=== PATIENT | female | born 1985 | race Caucasian/White ===

== ENCOUNTER 2023-09-07 05:46 | Observation (INO) ==
--- NOTE | 2023-08-24 15:42 | Anesthesiology Consultation ---
Date of Service August 24, 2023 Assessment & Plan (1) Encounter for pre-operative examination: Plan - check urine test STAT am DOS. - Per palliative care physician on 08/24/23: No known infectious disease contacts, current infectious disease symptoms in past 10 days or COVID positive test result in the past 30 days. Chart Review Chart Review: Acceptable Risk for Surgery and Patient NOT seen in Pre Admission Testing History Surgery Operation Date: 09/07/23 07:30 Proposed Procedures p [id number] Panniculectomy - Qing Olson MD Height/Weight Height: 5 ft 9.5 in Weight: 58.967 kg Allergies Allergy/AdvReac Type Severity Reaction Status Date / Time sumatriptan [From Imitrex] Allergy Intermediate Tachycardia Verified 08/24/23 15:22 nickel Allergy Mild SKIN Verified 08/24/23 15:22 IRRITATION strawberry AdvReac Mild Diarrhea Verified 08/24/23 15:22 NSAIDS (Non-Steroidal AdvReac Unknown TOLD NOT Verified 08/24/23 15:22 Anti-Inflamma TO TAKE D/T GASTRIC STEROID AdvReac Mild gan Uncoded 08/24/23 15:22 Medications Home Medications Medication Instructions Recorded Confirmed Last Taken albuterol sulfate 2.5 mg/3 mL 2.5 mg (3 mL) inhalation Q4H PRN 05/21/21 08/24/23 Unknown (0.083 %) solution for nebulization shortness of breath or wheezing #90 mL biotin 1,000 mcg chewable tablet 1,000 mcg PO DAILY 06/17/21 08/24/23 05/11/23 17:00 apixaban 2.5 mg tablet (Eliquis) 2.5 mg PO BID 03/04/23 08/24/23 05/10/23 18:00 cholecalciferol (vitamin D3) 25 25 mcg PO DAILY 05/05/23 08/24/23 Unknown mcg (1,000 unit) chewable tablet (Vitamin D3) potassium chloride 10 mEq 10 meq PO QPM 05/05/23 08/24/23 05/11/23 05:00 capsule,extended release vitamins-iron fumarate 65 1 tab PO DAILY #30 tabs 05/11/23 08/24/23 05/11/23 18:00 mg iron-folic acid 1 mg tablet loratadine 10 mg tablet (Claritin) 10 mg PO QAM #90 tabs 06/07/23 08/24/23 Unk nown ondansetron 4 mg disintegrating 4 mg PO Q8H PRN Nausea #20 tabs 08/04/23 08/24/23 Unknown tablet tramadol 50 mg tablet 50 mg PO BID PRN pain #30 tabs 08/08/23 08/24/23 Unknown medical marijuana 08/15/23 08/24/23 Unknown tizanidine 4 mg tablet 4 mg PO HS PRN Spasms #30 tabs 08/15/23 08/24/23 Unknown albuterol sulfate 90 mcg/actuation 2 puff inhalation Q6H PRN 08/16/23 08/24/23 Unknown aerosol inhaler shortness of breath or wheezing #18 grams Medical Marijuana Card 1 dose UD PRN anxiety/pain 08/18/23 08/24/23 Unknown atomoxetine 40 mg capsule 40 mg PO QAM 08/18/23 08/24/23 Unknown cyanocobalamin (vitamin B-12) 1,000 mcg IM UD 08/18/23 08/24/23 Unknown 1,000 mcg/mL injection solution diclofenac sodium 1 % topical gel 2 g topical UD PRN Pain 08/18/23 08/24/23 Unknown (Voltaren Arthritis Pain) hydroxyzine HCl 10 mg tablet 10 mg PO UD PRN itching 08/18/23 08/24/23 Unknown onabotulinumtoxinA 200 unit 200 unit IM UD 08/18/23 08/24/23 Unknown solution for injection (Botox) pantoprazole 40 mg tablet,delayed 40 mg PO QPM 08/18/23 08/24/23 Unknown release ubrogepant 100 mg tablet (Ubrelvy) 100 mg PO UD PRN migraine 08/18/23 08/24/23 Unknown oxycodone-acetaminophen 5 mg-325 1 tab PO Q4H PRN pain #18 tabs 08/22/23 08/24/23 Unknown mg tablet (Endocet) Past Medical History Medical History Abdominal pannus Anticoagulant long-term use eliquis bid Anxiety and depression Asthma rare use inhaler, last use 1 yr ago Attention deficit disorder (ADD) History of anesthesia reaction gets severe migraines after anesthesia History of COVID-19 05/20/21 History of DVT (deep vein thrombosis) 2019 History of high blood pressure History of high cholesterol History of IBS History of kidney stones Hx gestational diabetes Jaw clicking has not locked for several yrs > not severe per pt Migraines Nerve damage right leg Osteoarthritis Pernicious anemia Pulmonary embolism BILAT. PE DX 2019 (? CAUSE/FOLLOWS WITH HEMATOLOGY ANNUAL) LEG INJURY/DECREASE MOVEMENT>REASON FOR ELIQUIS Rheumatoid arthritis not active...no current tx for. Seasonal allergies Stroke hx of > MRI/MRA within past few months showed hx of old strokes, pt unaware of when the events would have happened Past Family History Family History Father Family history of diabetes mellitus Sister Family history of diabetes mellitus Other No family history of adverse response to anesthesia No pertinent family history Past Surgical History Surgical History H/O knee surgery RT X 3 History of bunionectomy LEFT History of section X 2 History of colonoscopy History of endometrial ablation History of esophagogastroduodenoscopy (EGD) History of sleeve gastrectomy 03/04/2021 History of tooth extraction Nausea and vomiting after administration of anesthetic agent Status post cystoscopy with ureteral stent placement 05/2023 @ [facility] Social History Smoking Status: Former smoker tobacco type: cigarettes Do You Dip or Chew Tobacco: No Smoking End Date: quit 2013 Hx Alcohol Use: No Alcohol type: wine Hx Substance Use: Yes (uses medical marijuana daily (advised on policy)) substance use type: marijuana Substance Use Type Other:: medical marijuana card. Last Used Substance: Days (ago) Last Used Substance Other:: ONLY MEDICAL MARIJUANA Lab Results Anesthesia Preop Results Results Anesthesia Widget: WBC 6.59 K/ul (4.8-10.8) 08/22/23 Hgb 14.2 g/dl (12.0-16.0) 08/22/23 Hct 40.9 % (37.0-47.0) 08/22/23 Plt 215 K/uL (130-400) 08/22/23 Na 135 mmol/L (136-145) L 08/22/23 K 3.6 mmol/L (3.5-5.1) 08/22/23 Cl 100 mmol/L (98-107) 08/22/23 CO2 31 mmol/L (21-32) 08/22/23 BUN 17 mg/dl (6-23) 08/22/23 Creat 0.53 mg/dl (0.6-1.2) L 08/22/23 Glucose Level 85 mg/dl (70-99(Fasting)) 08/22/23 PT 11.2 Seconds (9.0-12.0) 08/22/23 INR 1.0 (0.9-1.1) 08/22/23 Urine Color Dark Yellow 08/04/23 Urine Appearance Cloudy (Clear) A 08/04/23 Urine pH 5.5 (4.5-7.5) 08/04/23 Urine Specific [place] 1.029 (1.000-1.030) 08/04/23 Urine Protein Negative (Negative) 08/04/23 Urine Glucose (UA) Negative (Negative) 08/04/23 Urine Ketones Trace (Negative) H 08/04/23 Urine Blood Negative (Negative) 08/04/23 Urine Nitrite Negative (Negative) 08/04/23 Urine Bilirubin Negative (Negative) 08/04/23 Urine Urobilinogen Negative (Negative) 08/04/23 Urine Leukocyte Esterase 1+ (Negative) H 08/04/23 Urine WBC (Auto) 5-10 /hpf (0-5) H 08/04/23 Urine RBC (Auto) 0-4 /hpf (0-4) 08/04/23 Urine Hyaline Casts (Auto) 1-5 /lpf (0-5) 08/04/23 Urine Epithelial Cells (Auto) >30 /lpf (0-5) H 08/04/23 Urine Bacteria (Auto) 1+ (Negative) H 08/04/23 SARS-CoV-2, RNA, NAAT Negative 08/04/23 Testing Electrocardiogram Date: 04/27/23 NSR, rate 91 bpm Possible LA enlargement Low voltage QRS, consider pulmonary disease, pericardial effusion or normal variant Septal infarct cited on or before 08/08/20 Chest X-Ray Date: 04/27/23 *1view* Right lower lobe parenchymal opacity may represent aspiration or pneumonia Echocardiogram Date: 01/21/20 EF 70% Borderline concentric LVH Non-dilated cardiac chambers No significant valvular pathology Stress Test Date: 10/10/20 Dobutamine MPHR 85% Normal without resting LV wall motion abnormalities or inducible ischemia EF 60% No significant valvular disease Cervical Spine Date: 02/19/23 CT No acute cervical spinal injury demonstrated Other Testing Abdomen pelvis CT 05/14/23 Left nephroureteral stent in satisfactory position with mild hydronephrosis. Otherwise unremarkable study. Head MRA 04/26/23 Normal MRA of the head Brain MRI 04/05/23 No acute intracranial abnormality Small focal area of T2 hyperintensity seen within the posterior right cerebellum that appears increased compared with the axial T2 weighted images from the prior MRI dated 09/19/17, which may represent a chronic lacunar infarction. Small focus of susceptibility artifact seen within the posteromedial left cerebellum, which may represent a tiny cavernous malformation or chronic micro hemorrhage.
[2023-09-07] MEDS: LR 15ML/HR IV SCH (06:32)
[2023-09-07] MEDS ORDERED: ONDANSETRON INJ 2 MG/ML 2 ML VIAL ONE (06:49)
[2023-09-07] MEDS ORDERED: LIDOCAINE 2% 2 ML VIAL/AMP(20MG/ML) INFIL ONE ×3 (06:49→09:43)
[2023-09-07] MEDS ORDERED: PROPOFOL IV EMULSION 10 MG/ML 20 ML VIAL IV ONE ×5 (06:49→07:28)
[2023-09-07] MEDS ORDERED: fentaNYL citrate PF 100 MCG/2 ML VIAL ONE ×2 (06:49→08:25)
[2023-09-07] MEDS ORDERED: MIDAZOLAM HCL 1 MG/ML 2ML VIAL ONE (06:49)
[2023-09-07] MEDS ORDERED: DEXAMETHASONE SOD INJ 4 MG/ML VIAL ONE (06:49)
[2023-09-07] MEDS: SCOPOLAMINE 1 MG/72 HR TDSY PATCH TD ONE (06:51)
[2023-09-07] MEDS ORDERED: ROCURONIUM BROMIDE 10 MG/ML 5 ML VIAL IV ONE ×15 (06:53→10:04)
--- NOTE | 2023-09-07 06:53 | History & Physical Bridge Note ---
Date of Service September 07, 2023 History & Physical Bridge Note I have examined the patient, reviewed the History & Physical and in the interval since the performance of the History & Physical I have noted the following changes of clinical significance: no changes noted
[2023-09-07] MEDS ORDERED: ePHEDrine sulfate 50 MG/ML AMP IV PRN (06:55)
[2023-09-07] MEDS ORDERED: ATROPINE SULFATE 0.1 MG/ML 10ML SYR IV PRN (06:55)
[2023-09-07] MEDS ORDERED: KETAMINE HCL INJ 50 MG/ML 10 ML VIAL ONE (07:14)
[2023-09-07] MEDS ORDERED: GLYCOPYRROLATE 0.2 MG/ML VIAL ONE (07:15)
[2023-09-07] MEDS: HEPARIN SOD 5,000 UNIT/0.5 ML VIAL SQ STA (07:21)
[2023-09-07] MEDS ORDERED: DexMEDEtomidine HCL IV 100 MCG/ML VIAL IV ONE (07:23)
[2023-09-07] MEDS: ceFAZolin 2000MG 2,000 MG/15 ML SYR IV SCH ×2 (07:28→16:33)
[2023-09-07] MEDS: EpINEphrine HCL INJ 1 MG/ML 1ML SYRINGE IR ONE (08:42)
[2023-09-07] MEDS: LIDOCAINE 1% LOCAL 20 ML VIAL ONE (08:44)
[2023-09-07] MEDS ORDERED: SUGAMMADEX SODIUM 200 MG/2 ML VIAL IV ONE (09:46)
[2023-09-07] MEDS ORDERED: ePHEDrine sulfate 50 MG/5 ML SYR ONE (10:30)
[2023-09-07] MEDS: LIDOCAINE 1%/EPINEPHRINE 1:100,000 20 ML VIAL ONE (10:49)
[2023-09-07] MEDS: BUPIVACAINE 0.25% PF 30 ML VIAL ONE (10:49)
[2023-09-07] MEDS: TISSEEL FIBRIN SEALANT 10ML TOP ONE (11:10)
[2023-09-07] MEDS ORDERED: MoRPHine SULFATE 2 MG/ML CARP ONE (11:32)
--- NOTE | 2023-09-07 11:43 | Post Operative Brief Note ---
PG Immediate Post Op with CF Date of Surgery September 07, 2023 Pre & Post Diagnosis Operation Date: 09/07/23 07:30 Pre-Op Diagnosis: Abdominal Pannus Post-Op Diagnosis: Abdominal Pannus I identified the patient and participated in the time-out.: Yes Procedure Operation Date: 09/07/23 07:30 Actual Procedures p [id number] Panniculectomy(Bilateral) - Qing Olson MD Surgeon Qing Olson MD Lacquerer Brenda Duron PA-C Estimated Blood Loss 50 Findings Consistent with Post-Op Diagnosis Specimens Specimen Description: A. Abdominal Tissue Drains Valdez Catheter and Cedrick-S[place]ie[place] Drain (x3 ) Anesthesia Type General Complications none
[2023-09-07] MEDS: fentaNYL citrate PF 100 MCG/2 ML VIAL IV PRN (12:36)
--- NOTE | 2023-09-07 13:00 | Operative Report ---
PG Post Operative Report Pre & Post Diagnosis Operation Date: 09/07/23 07:30 Pre-Op Diagnosis: Abdominal Pannus Post-Op Diagnosis: Abdominal Pannus I identified the patient and participated in the time-out.: Yes Procedure Operation Date: 09/07/23 07:30 Actual Procedures p Thierry Panniculectomy(Bilateral) - Qing Olson MD Surgeon Qing Olson MD Patient Ombudsperson Brenda Duron PA-C Estimated Blood Loss 50 Findings Consistent with Post-Op Diagnosis Specimens Abdominal skin to pathology Drains DUONG x 3 Anesthesia Type General Complications none Indications 37-year-old female, status post 220 pound weight loss with excess and intertrigo Description of Procedure The risk, benefits, alternatives of procedure explained the patient agreed and signed consent. She was notified marked in the preoperative holding area. Upper abdominal skin resection as well as the infraumbilical planned resection in a judaism shaped pattern. Patient was brought to the operating room, placed under general anesthesia without incident. Valdez catheter was placed. Surgical site was prepped and draped sterilely. Timeout procedure was performed. I reassessed my markings which included a lower horizontal abdominal incision with the midportion 8 cm above the vulvar commissure. Incision was marked bilaterally to the ASIS. I began by injecting 1% lidocaine with epinephrine along the planned incision. The lower abdominal incision was made using a 15- blade scalpel to incise epidermis and superficial dermis followed by electrocautery to incise deep dermis, subcutaneous fat, Javier's fascia down to the abdominal wall. Care was taken to bevel superiorly in order to avoid encountering the inguinal region. Electrocautery was used to elevate the anterior abdominal skin flap ligating the perforating vessels with 3-0 Vicryl ties and electrocautery. Dissection was carried up to the level of the umbilicus in the midline. At this point, a 15-blade scalpel was used to circumscribe the umbilicus. A vertical midline incision was then made from the incision to the umbilicus and divided in the midline using electrocautery. The umbilicus was then dissected out using electrocautery down to abdominal wall. The umbilical stalk appeared viable throughout the procedure. Skin flaps were marked for excision. A 15-blade scalpel was used to make these incisions and the incision was deepened through dermis, subcutaneous fat, Javier's fat using electrocautery. Subscarpal fat was resected directly. Prior reed were confirmed using tailor tacking and the inverted V incision was made using a 15 blade scalpel and deepened through the dermis and subcutaneous tissue using electrocautery. Dissection of the skin and underlying subcutaneous tissue was undertaken at the level of the rectus fascia to the xiphoid process. Hemostasis was achieved using electrocautery. 2-0 Vicryl suture was used to reapproximate Javier's fascia and deep dermis. At this point, the bed was flexed and the flaps were advanced and tacked to the incision above the mons pubis using 2-0 Vicryl suture. Nursing staff was again notified cosmetic portion was ending.After achieving hemostasis with electrocautery. 10 cc of Tisseel was sprayed into the upper abdominal wound due to patient being treated preoperatively with heparin and need for postoperative Eliquis use, prevent hematoma or seroma and facilitate flap adherence. All skin edges did appear to be viable following this portion of the procedure. A total of 3 15 [place] drains were placed in the wound bed and brought out through a separate stab incision in the mons pubis. The drains were sutured into place using 3-0 nylon. The umbilicus was brought out through an inverted triangular incision in the abdominal wall. Wound closure was then begun lateral to medial using 2-0 Vicryl Javier's fascia sutures, 2-0 Vicryl deep dermal sutures, 2-0 PDO running superficial Quill suture, 3-0 Monocryl running subcuticular suture. Umbilicus w as brought out through the inverted triangle incision and was sutured into place using 4-0 chromic half buried horizontal mattress sutures. The remainder of the upper abdominal incision was closed using 2-0 PDO running superficial Quill suture and 3-0 Monocryl running subcuticular suture superior to the umbilicus, 3-0 PDS interrupted superficial dermal sutures inferior to the umbilicus followed by running subcuticular Monocryl. The umbilicus was dressed using Xeroform and the incision was dressed using Dermabond Prineo followed by dry dressings and an abdominal binder. The procedure was tolerated well. The patient was awakened and transferred to recovery in satisfactory condition. Brenda Duron PA-C were present and scrubbed throughout the entire procedure, assisting in flap elevation, retracting, achieving hemostasis, flap resection, and simultaneous wound closure. I attest to the content of the Intraoperative Record and any orders documented therein. Any exceptions are noted below.
[2023-09-07] MEDS ORDERED: HYDROmorphone INJ 1 MG/ML SYRINGE IV PRN (13:05)
[2023-09-07] MEDS: HYDROmorphone INJ 0.5 MG/0.5 ML SYR ONE (13:10)
[2023-09-07] MEDS: HYDROmorphone INJ 0.5 MG/0.5 ML SYR IV STA (13:10)
[2023-09-07] MEDS: DROPERIDOL 5 MG/2 ML VIAL IV PRN (13:12)
[2023-09-07] MEDS ORDERED: diphenhydrAMINE Capsule 25 MG CAP PO PRN (14:24)
[2023-09-07] MEDS ORDERED: ONDANSETRON INJ 2 MG/ML 2 ML VIAL IV PRN (14:24)
[2023-09-07] MEDS ORDERED: ACETAMINOPHEN 325 MG TAB PO PRN (14:24)
[2023-09-07] MEDS ORDERED: diphenhydrAMINE 50 MG/ML VIAL IV PRN (14:24)
[2023-09-07] MEDS ORDERED: LORazepam 0.5 MG TAB PO PRN (14:24)
[2023-09-07] MEDS ORDERED: PROMETHAZINE HCL 12.5 MG in SODIUM CHLORIDE 0.9% 50 ML IV PRN (14:24)
[2023-09-07] MEDS: D5W AND 1/2NSS 1,000 ML IV SCH (15:04)
[2023-09-07] MEDS: CHECK SCOPOLAMINE PATCH PLACEMENT SCH (15:08)
[2023-09-07] MEDS: HEPARIN SOD 5,000 UNIT/0.5 ML VIAL ONE (15:09)
--- NOTE | 2023-09-07 15:18 | Anesthesiology Progress Note ---
Date of Service September 07, 2023 Anesthesia Post Procedure Vital Signs Vital Signs: Temp Pulse Pulse Resp BP Pulse Ox O2 Del Method 09/07/23 15:00 36.6 C 71 14 127/84 100 Room Air 09/07/23 14:30 36.4 C L 62 16 127/82 99 Room Air 09/07/23 13:50 55 L 12 124/84 100 Room Air 09/07/23 13:40 36.3 C L 62 14 129/91 99 Room Air 09/07/23 13:30 68 13 148/93 H 99 Room Air 09/07/23 13:20 68 13 150/96 H 100 Room Air 09/07/23 13:10 65 13 156/89 H 100 Room Air 09/07/23 13:00 77 14 149/93 H 100 Room Air 09/07/23 12:50 56 L 12 138/87 100 Room Air 09/07/23 12:40 54 L 13 142/94 H 99 Room Air 09/07/23 12:30 73 14 136/95 100 Room Air 09/07/23 12:20 67 14 121/85 100 Oxymask 09/07/23 12:10 67 12 125/85 100 Oxymask 09/07/23 12:08 36.0 C L 67 12 111/80 100 Oxymask 09/07/23 06:10 36.8 C 71 18 136/75 100 Room Air O2 Flow Rate 09/07/23 15:00 09/07/23 14:30 09/07/23 13:50 0 09/07/23 13:40 0 09/07/23 13:30 0 09/07/23 13:20 0 09/07/23 13:10 0 09/07/23 13:00 0 09/07/23 12:50 0 09/07/23 12:40 0 09/07/23 12:30 0 09/07/23 12:20 8 09/07/23 12:10 8 09/07/23 12:08 8 09/07/23 06:10 Pain Intensity Abdomen: Pain Intensity: 7 Transfer of Care Handoff Completed per policy Notes Mental Status: alert / awake / arousable Patient Amnestic to Procedure: Yes Nausea / Vomiting: adequately controlled Pain: adequately controlled Airway Patency, RR, SpO2: stable & adequate BP & HR: stable & adequate Hydration State: stable & adequate Anesthetic Complications: no major complications apparent
[2023-09-07] MEDS: MoRPHine SULFATE 4 MG/ML 1 ML CARP\\VIAL IV PRN (18:05)
--- OUTSIDE RECORDS SUMMARY | 2023-09-07 19:27 | External Medical Summary | Summary of Care ---
Author Name Unknown Organization [facility] Address [address] [place] [address] Phone [phone] Care Team Providers Care Hand Shoes Sewer Name Role Phone Alan Bryant DO Primary Care Provider [phone] Reason for Visit * Reason Comments Follow Up Patient is present t imelda for L greater toe ingrown. Also having issues with pinky toe on L foot as well Encounter Details Date Type Department Care Team (Late st Contact Info) Description 08/29/2023 1:20 PM EDT Office Visit Podiatry, [facility] [address] [place] [address] Freya Blanton, FERMÍN [address] [place], [place] [id number] Corns and callosities*; Ingrown left big toenail Allergies Active Allergy Reactions Criticality Noted Date Comments Sumatriptan Anaphylaxis High 05/08/2014 Nickel Rash Low 01/05/2022 Nsaids Other (Please comment) 01/05/2022 History of sleeve gastrectomy and was advised not to take NSAIDs Corticosteroids Other (Please comment) 01/06/20 History of sleeve gastrectomy and was advised not to take oral steroids [place] Extract High 05/05/2023 Other Reaction(s): Diarrhea documented as of this encounter (statuses as of 08/30/2023) Medications Medication Sig Dispensed Refills Start Date End Date Status albuterol (PROAIR HFA) 108 (90 BASE) MCG/ACT inhalerIndications:In fluenza A Inhale 2 Puffs by mouth every 4 hours as needed for Wheezing. 1 Inhaler 11 05/23/2017 Active vitamin b-12 (CYANOCOBALAMIN) 1000 MCG/ML injection Inject 1,000 mcg as directed every 30 days. 1 mL 11 11/23/2017 Active albuterol sulfate (PROVENTIL) (2.5 MG/3ML) 0.083% nebulizer solutionIndications:C ough Inhale 1 Vial via nebulizer every 4 hours as needed for Wheezing. 120 Vial 11 02/09/2018 Active Nebulizer MISCIndications:Cough Nebulizer mask and tubing 1 Each 0 02/09/2018 Active clonazePAM (KLONOPIN) 0.5 MG Tablet 1 09/29/2018 Active Myawdhffzc-XBVA-Dhmlb ine (FIORICET) 50-300-40 MG per capsule Take 1 Capsule by mouth every 6 hours as needed (migraine). 0 Active traMADol (ULTRAM) 50 MG Tablet Take 1 Tablet by mouth every 6 hours as needed for Pain. 0 Active tiZANidine (ZANAFLEX) 4 MG Tablet Take 1 Tablet by mouth 3 times a day as needed. 0 03/14/2019 Active Biotin 5 MG TBDP Take 1 Tab by mouth daily. 0 03/14/2019 Active Krill Oil (OMEGA-3) 500 MG CAPS Take 1 Cap by mouth daily. 0 03/14/2019 Active Loratadine 10 MG Oral Tablet (CLARITIN) TAKE 1 TABLET BY MOUTH EVERY DAY 30 Tab 5 02/08/2020 Active busPIRone HCl 10 MG Oral Tablet (Buspar) Take 2 Tablets by mouth in the morning and 2 Tablets before bedtime. 0 05/28/2020 Active DULoxetine HCl 20 MG Oral Capsule Delayed Release Particles (Cymbalta) Take 1 Capsule by mouth in the morning and 1 Capsule before bedtime. 0 03/17/2020 Active Folic Acid 1 MG Oral Tablet See Instructions, Disp# 30 tab, Refills: 3, TAKE 1 TABLET BY MOUTH EVERY DAY, Pharmacy: [id number] 05/13/2020 Active Methotrexate 2.5 MG Oral Tablet See Instructions, Disp# 35 tab, Refills: 1, TAKE 7 TABLETS EVERY 7 DAYS FOR 30 DAYS, Pharmacy: [facility] [id number] 07/21/2020 Active Botox 100 UNIT Injection Solution Reconstituted (botulinum toxin type a) Start: 08/04/20 9:20:00 EDT, See Instructions, q three months 0 08/04/2020 Active Vitamin D (Cholecalciferol) 50 MCG (1999 UT) Oral Capsule Take 1 Cap by mouth daily. 0 09/05/2020 Active Vitamin C 500 MG Oral Capsule Take 1 Cap by mouth daily. 0 09/05/2020 Active Apixaban 5 MG Oral Tablet (Eliquis) Take 1 Tablet by mouth in the morning and 1 Tablet before bedtime. 0 Active Lisinopril 10 MG Oral Tablet (Prinivil) Take 1 Tablet by mouth in the morning. 0 12/13/2020 Active Acetaminophen-Codeine #3 300-30 MG Oral Tablet (Tylenol #3) TAKE 1 TABLET BY MOUTH EVERY 8 HOURS NEEDED FOR PAIN NO DRIVING WHILE ON TYLENOL 3 0 12/16/2020 Active Lidocaine 4 % External Cream APPLY TO BOTH KNEES 3 TIMES A DAY. 30 DAY SUPPLY 0 12/29/2020 Active Continuation of patient use of medical marijuana is approved Start: 01/22/21 8:22:00 EDT 0 01/22/2021 Active Ondansetron HCl 4 MG Oral Tablet (Zofran) TAKE 1 TABLET BY MOUTH EVERY 8 HOURS NEEDED FOR NAUSEA AND VOMITING 0 04/23/2021 Active Continuation of patient use of medical marijuana is approved Start: 01/22/21 8:22:00 EDT 0 01/22/2021 Active Ondansetron HCl 8 MG Oral Tablet (Zofran) Take 1 Tablet by mouth every 8 hours as needed for Nausea or Vomiting. 12 Tablet 0 06/28/2022 Active Promethazine HCl 25 MG Rectal Suppository (Phenergan) Administer 1 Suppository into the rectum every 6 hours as needed for Nausea. 12 Each 0 06/28/2022 Active Ondansetron 4 MG Oral Tablet Disintegrating (Zofran) Place 1 Tablet on tongue every 8 hours as needed for Nausea. dissolve on tongue. 2 Tablet 0 04/28/2023 Active Ondansetron 4 MG Oral Tablet Disintegrating (Zofran) Place 1 Tablet on tongue every 8 hours as needed for Nausea. dissolve on tongue. 15 Tablet 0 04/28/2023 Active documented as of this encounter (statuses as of 08/30/2023) Active Problems Problem Noted Date Diagnosed Date Endometrial polyp 01/14/2021 Menometrorrhagia 12/19/2020 History of IBS 10/07/2020 History of polyarthritis 10/07/2020 Obesity, Class II, BMI 35-39.9, isolated (see ac tual BMI) 10/16/2019 Bilateral pulmonary embolism 10/16/2019 Anxiety 10/16/2019 Depression 10/16/2019 Pulmonary infarction 10/16/2019 Tinnitus of right ear 06/01/2017 Advanced directives, counseling/discussion 04/18 Overview: No, Advance Directive brochure offered, patient declined. Family history of clubfoot 02/21/2017 Family history of congenital heart defect 2014 Family history of defect 12/10/2014 Family history of other condition 10/22/2014 Asthma in remission 05/08/2014 Migraines 05/08/2014 Pernicious anemia 05/08/2014 documented as of this encounter (statuses as of 08/30/2023) Resolved Problems Problem Noted Date Diagnosed Date Resolved Date Body mass index (BMI) of 40. 0 to 44.9 in adult 03/13/2018 05/19/2018 Overview: Per Obesity protocol #1 Morbid obesity, unspecified obesity type 12/28/2017 02/13/2018 BMI 45.0-49.9, adult 12/28/2017 018 Overview: Per Obesity protocol #1 Mild preeclampsia, third trimester 08/04/2017 09/01/2017 Overview: 08/04/2017 = Urine protein creatinine ratio 0.30 08/04/2017 = 24 hr urine pending. Pt to bring sample on Tuesday when she has her rpn Pt dx = chronic hypertension with superimposed PEC Pt should have PEC labs done every week from this point on and pt to call if any symptoms of PEC. To increase dose of labetalol to 200 mg bid. Pt to call and discontinue if BP drops below 120/80 Delivery at 37w0d or no later than 39 wks. Supervision of high-risk pre gnancy, unspecified trimester 04/06/2017 08/04/2017 Insulin-dependent diabetes m chidiitus during , antepartum 04/06/2017 09/01/2017 Overview: Recommend surveillance starting at 32 weeks secondary to CHTN on medications, GDMA2, and class III obesity. Recommend follow up ultrasound with MFM in 4 weeks for growth and completion of anatomy. If the missed anatomy is sufficiently visualized, then follow-up growth scans afterward could be obtained in [place]. Recommend delivery at/after 39w0d and by EDC. Hx of preeclampsia, prior pr egnancy, currently 04/06/2017 08/04/2017 Supervision of other high ri sk pregnancies, first trimester 02/21/2017 04/06/2017 Chronic hypertension in 02/21/2017 09/01/2017 Overview: Labetolol. 08/04/2017 increased dose to 200 mg bid Obesity in , antepartum 02/21/2017 08/04/2017 History of pre-eclampsia in prior , currently in first trimester 02/21/2017 History of section complicating 02/21/2017 09/01/2017 Insulin controlled gestation al diabetes mellitus (GDM) in first trimester 02/21/20172016 Insulin controlled gestation al diabetes mellitus (GDM) during , antepartum 02/02/2017 06/15/2017 Overview: Problem Action Taken Date entered Entered by Date resolved Need for baby supplies Distribute cribs letter Refer to local support centers 02/09/2017 Gertrudis Alejnadra RN 02/09/2017 Problem Action Taken Date entered Entered by Date resolved Need for food assistance referred to [facility] and local food [place] 02/09/2017 Gertrudis Alejandra RN 02/09/2017 Problem Action Taken Date entered Entered by Date resolved Current needs or questions Patient denies having any current needs or questions 03/09/2017 Frances Yadav, CARLITO 03/09/17 Problem Action Taken Date entered Entered by Date resolved Recent spotting Provider seen 03/30/2017 Gertrudis Alejandra RN 03/30/2017 Problem Action Taken Date entered Entered by Date resolved Second trimester education Second trimester education. have you cut down with your smoking. na have you quit . no have you seen a floor clerk. No, had appt she did not show. have you seen a social insurance adviser. no are you receiving counseling. no have you received dental care during your . yes are you enrolled in [facility] . yes do you receive food stamps or [place] assistance. no 04/06/2017 Lexie Curry RN 04/06/2017 Problem Action Taken Date entered Entered by Date resolved Mucus discharge Provider visit. Did not bring list of blood sugars to visit 04/14/2017 Gertrudis Alejandra RN 04/14/2017 Problem Action Taken Date entered Entered by Date resolved Current needs or questions Patient denies having any current needs or questions 05/04/2017 Lexie Curry RN 05/04/2016 Problem Action Taken Date entered Entered by Date resolved Current needs or questions Patient denies having any current needs or questions 06/01/2017 Frances Yadav RN 06/01/17 Problem Action Taken Date entered Entered by Date resolved 3 rd trimester education Third trimester education have you cut down with your smoking. na have you quit . na have you seen a floor clerk. Scheduled but did not see patienat have you seen a social insurance adviser. no are you receiving counseling. no have you received dental care during your . yes are you enrolled in [facility] . yes do you receive food stamps or [place] assistance. no 06/15/2017 Lexie Curry Rn, RN 06/15/2017 Problem Action Taken Date entered Entered by Date resolved Current needs or questions Patient denies having any current needs or questions 06/29/2017 Gertrudis Alejandra RN 06/29/2017 Problem Action Taken Date entered Entered by Date resolved Current needs or questions Patient denies having any current needs or questions 47. Client's Concerns About Delivery or The Process: concerned that she does not know this hospital 48. Problems Feeding Previous Babies: Unsuccessful Breast Feeding 49. Concerns About Feeding This Baby: stress 50. Plans For Baby's Space: share room with parents in [facility] 51. Client's Plans After : Will Stay at Home to Care for Baby Comments (Including Shift Mgr Plans If Returning to Work/School): SUMMARY/INFORMATION 52. Need For Additional Information / Help: Childbirth Education patient went to course 07/08/2017 Gertrudis Alejandra RN 07/08/2017 Problem Action Taken Date entered Entered by Date resolved Current needs or questions Patient denies having any current needs or questions 07/15/2017 Gertrudis Alejandra RN 07/15/2017 Problem Action Taken Date entered Entered by Date resolved Current needs or questions Patient denies having any current needs or questions 07/22/2017 Frances Yadav RN 07/22/17 Problem Action Taken Date entered Entered by Date resolved Current needs or questions Patient denies having any current needs or questions 07/29/2017 Gertrudis Alejandra RN 07/29/2017 Problem Action Taken Date entered Entered by Date resolved Current needs or questions Patient denies having any current needs or questions 08/05/2017 Gertrudis Alejandra RN 08/05/2017 Problem Action Taken Date entered Entered by Date resolved Current needs or questions Patient denies having any current needs or questions 08/09/2017 Gertrudis Alejandra RN 08/09/2017 Problem Action Taken Date entered Entered by Date resolved Patient wanting to discuss early c section Scheduled with Dr. Al 08/15/2017 Gertrudis Alejandra RN 08/15/2017 Problem Action Taken Date entered Entered by Date resolved Current needs or questions Patient denies having any current needs or questions 08/19/2017 Gertrudis Alejandra RN 08/19/2017 Problem Action Taken Date entered Entered by Date resolved Current needs or questions Patient denies having any current needs or questions 08/23/2017 Gertrudis Alejandra RN 08/23/2017 Problem Action Taken Date entered Entered by Date resolved Current needs or questions Patient denies having any current needs or questions 08/26/2017 Gertrudis Alejandra RN 08/26/2017 Problem Action Taken Date entered Entered by Date resolved Education education given 10/14/2017 Jarred Ferrer RN 10/14/17 Gestational proteinuria, antepartum 01/20/2017 09/01/2017 Overview: Pt w/ proteinuria which may predate ; currently 179 mg daily on specimen w/ normal <150 mg daily -recheck spot ratio -monitor spot ratios through and luann after -low threshold to recheck 24 hr urine in 4-6 wks -control BP w/ prg appropriate meds -no indication at this time for serologic work up or renal biopsy but needs to be monitored closely; cannot rule out need in future [employer] Other*[id number] 01/17/2017 06/06/2019 Essential hypertension affecting 01/10/2017 08/04/2017 Previous delivery, antepartum condition or complication 01/10/2017 08/04/2017 Overview: Considering , no tubal Hx of preeclampsia, prior pr egnancy, currently 01/10/2017 09/01/2017 Overview: Taking baby ASA. GDM (gestational diabetes mellitus) 05/28/2015 08/04/2017 Hypertension in , p reeclampsia, delivered 05/28/2015 10/26/2016 GBS (group B streptococcus) infection 04/28/2015 04/28/2015 Overview: RV probe positive for GBS. Will in treat when in labor per protocol. Pre eclampsia Biomarkers Res ear Study*[id number] 04/23/2015 05/05/2015 Overview: The [facility] Preeclampsia Study (IRB#[id number]) is an observational study aimed at collecting blood and urine samples from women to develop a diagnostic test for preeclampsia. Patients enrolled provide samples at time of enrollment and a second set of samples if they develop preeclampsia later in . Study participation ends after the patient's first standard post-delivery visit. PI: Dr. Cory Lopez Study Contacts: Jia Kohli ([id number]) or Isabel Sanchez ([id number]) Glucose intolerance (impaire d glucose tolerance) 01/22/2015 04/20/2017 GDM (gestational diabetes mellitus) 12/19/2014 04/28/2015 Obesity, Class III, BMI 40-4 9.9 (morbid obesity) 12/10/2014 12/28/2017 Overview: Class 3-BMI 40+: Recommend restricting weight gain during to 11-20 pounds. Consider referral for nutrition consult. For patients with Class 3 obesity, recommend baseline pre-eclamptic labs with serum AST/ALT/creatinine and 24 hour urine protein LUDMILA if not already done. Recommend obtaining early Gestational Diabetes Mellitus screen and repeat again at 26-28 weeks if early screen is normal. Recommend Maternal Medicine ultrasound for anatomy screen at 20 weeks and for growth every 4 weeks after 24 weeks. For patients with Class 3 obesity, we recommend surveillance twice weekly to begin at 36 weeks and delivery by EDC. Recommend anesthesia consult during the antepartum period. Obesity in , antepartum 12/10/2014 05/28/2015 First trimester screening 12/10/2014 Headache in 12/10/20142015 Maternal asthma complicating 12/10/2014 05/28/2015 Pap smear for cervical cancer screening 10/31/2014 04/28/2015 Overview: Last pap in [place] 09/12/13 WNL , normal first 10/22/201405/03 Overview: Problem Action Taken Date entered Entered by Date resolved BMI greater than 30 Discuss importance of proper diet Referral to eye dropper assembler Provider referral to Maternal Medicine 10/22/2014 Bernice Fraser RN 10/22/14 Problem Action Taken Date entered Entered by Date resolved Need for baby supplies Distribute cribs letter Refer to local support centers 10/22/2014 Bernice Fraser RN 10/22/14 Problem Action Taken Date entered Entered by Date resolved Lack of knowledge regarding Labor & Delivery Encourage childbirth education classes and Education class schedule given to patient 10/22/2014 Bernice Fraser RN 10/22/14 Problem Action Taken Date entered Entered by Date resolved Current needs or questions Patient denies having any current needs or questions. U/S scheduled today to confirm FHT's 11/19/2014 Lexie Curry RN 11/19/2014 Problem Action Taken Date entered Entered by Date resolved Questions re GDM Answered by Dr. Munoz. Will check blood glucose. All normal. Only fasted 6 hours for 3 hour GTT 12/31/2014 Lexie Curry RN 12/31/2014 Problem Action Taken Date entered Entered by Date resolved N&V Need for baby supplies Discussed comfort measures Referred to [facility] 01/14/2015 Frances Yadav RN 01/14/15 Problem Action Taken Date entered Entered by Date resolved Current needs or questions Patient denies having any current needs or questions 01/28/2015 Bernice Fraser RN 01/28/15 Problem Action Taken Date entered Entered by Date resolved Second trimester ed Pre term labor warnings and instructions, kick count instructions, danger signs given, information brochure on Sudden Sydrome given to patient, as well as infant feeding information, and patient advised to use seat belt. All information given both verbally and in writing. Phone numbers given to reach us both during and after office hours. Aware of numbers to call with any questions and concerns. Discussed need for flu vaccine and Tdap. 02/24/2015 Lexie Curry RN 02/24/2015 Problem Action Taken Date entered Entered by Date resolved GDM Glucose not at goal Starting glyburide 2.5 mg today 03/24/2015 Lexie Curry RN Problem Action Taken Date entered Entered by Date resolved Tdap Vaccine given 04/08/2015 Bernice Fraser RN 04/08/15 Problem Action Taken Date entered Entered by Date resolved Lack of knowledge of childbirth Registered for childbirth classes 04/08/2015 Bernice Fraser RN 04/08/15 Problem Action Taken Date entered Entered by Date resolved 32 week readiness 47. Client's Concerns About Delivery or The Process: denies 48. Problems Feeding Previous Babies: Other planning to breast feed 49. Concerns About Feeding This Baby: no 50. Plans For Baby's Space: will sleep in a crib in moms room initially 51. Client's Plans After : Will Stay at Home to Care for Baby Comments (Including Shift Mgr Plans If Returning to Work/School): SUMMARY/INFORMATION 52. Need For Additional Information / Help: Other no 04/22/2015 Lexie Curry RN 04/22/2015 documented as of this encounter (statuses as of 08/30/2023) Immunizations Name Administration Dates Next Due COVID-19 mRNA, LNP-s, No Pre serve, 2-Dose Series (Airec) 12/19/2020,06/13/2020,05/23/2020 COVID-19, LNP-s, No Preserve , Vladimir-sucrose, Ages 12+ (Pfizer) 12/19/2021,06/12/2021 Seasonal Influenza, PF, 6 M & above, IM , (FluLaval or Fluzone) 01/14/2021 Seasonal Influenza, Quadriva lent, No Preserve, IM 04/15/2015 Seasonal Influenza, Quadriva lent,with Preserve, 3 yr & above, IM 01/15/2020 TDAP (age 10 and older)(Boostrix) 06/29/2017,11/2014 documented as of this encounter Social History Tobacco Use Types Packs/Day Years Used Date Smoking Tobacco: Former Cigarettes Q uit: 03/24/2014 Smokeless Tobacco: Never Comments:Not smoking Alcohol Use Standard Drinks/Week Comments No 0 (1 standard drink = 0.6 oz pur e alcohol) none in over 1 year PHQ-2 Answer Date Recorded PHQ-2 Score 2 03/06/2018 Sex and Gender Information Value Date Recorded Sex Assigned at Not on file Gender Identity Not on file Sexual Orientation Not on file Job Start Date Occupation Industry Not on file Not on file Not on file documented as of this encounter Functional Status Functional Status Response Date of Assess ment Are you deaf or do you have serious difficulty h earing? No 10/16/2019 Are you blind or do you have serious difficulty seeing, even when wearing glasses? No 10/16/2019 Do you have serious difficul ty walking or climbing stairs? (5 years old or older) No 10/16/2019 Do you have difficulty dress ing or bathing? (5 years old or older) No 10/16/2019 Because of a physical, menta l, or emotional condition, do you have difficulty doing errands alone such as visiting a doctor s office or shopping? (15 years old or older) No 10/16/19 20 Cognitive Status Response Date of Assessm ent Because of a physical, menta l, or emotional condition, do you have serious difficulty concentrating, remembering, or making decisions? (5 years old or older) No 10/16/2019 documented as of this encounter Progress Notes * Blanca Ruiz, DPM - 08/29/2023 1:32 PM EDT [facility] Name: [facility]ier Date: 08/29/2023 Time: 1:32 PM Subjective PRESENTING PROBLEM: L IGTN Patient Active Problem List Diagnosis Code Asthma in remission J45.998 Migraines G43.909 Pernicious anemia D51.0 Family history of other condition Z84.89 Advanced directives, counseling/discussion Z71.89 Family history of congenital heart defect Z82.79 Family history of defect Z82.79 Family history of clubfoot Z82.69 Tinnitus of right ear H93.11 Obesity, Class II, BMI 35-39.9, isolated (see actual BMI) E66.9 Bilateral pulmonary embolism (HCC) I26.99 Anxiety F41.9 Depression F32.A Pulmonary infarction (HCC) I26.99 History of IBS Z87.19 History of polyarthritis Z87.39 Menometrorrhagia N92.1 Endometrial polyp N84.0 Patient is a pleasant 37 year old y/o female with a PMH as detailed below. They presents to the clinic today for evaluation of a painful ingrown nail. Pt relates that the ingrown nail has been present for months. There is pain associated with ambulation and with shoe wear. There has been a gradual increase with pain. Treatment thus far has consisted of trimming toenails herself. Patient also complains of callus L dorsal 5th toe and R sub 5. Currently feels well. Denies any F/C/N/V/NS/CP/SOB. PAST MEDICAL HISTORY: Past Medical History: Diagnosis Date Anxiety Asthma exacerbation exercise/anxiety induced, inhaler last used over 1 year ago Bilateral pulmonary embolism (HCC) 10/16/2019 Chronic hypertension Depression GDM (gestational diabetes mellitus) 2014, 2016 HTN (hypertension) Migraines Maxalt outside of Motion sickness Pernicious anemia B12 injections PONV (postoperative nausea and vomiting) Preeclampsia Pulmonary infarction (HCC) 10/16/2019 Rheumatoid arthritis involving knee (HCC) 2018 PAST SURGICAL HISTORY: Past Surgical History: Procedure Laterality Date BUNION CORRECTED WITH DOUBLE OSTEOTOMY 2004 left foot DELIVERY N/A 08/29/2017 DELIVERY ONLY performed by Xni Al MD at [facility] DELIVERY ONLY W/ 04/28/2015 DELIVERY AND CARE performed by Janice Spivey MD [place] [facility]ED[place] NEC HYSTEROSCOPY;ENDOMETRIAL ABLAT N/A 01/14/2021 HYSTEROSCOPY ENDOMETRIAL ABLATION performed by Xin Al MD at OR [facility] MENISCUS SURGERY EDU 2001 right knee x3 RELEASE OF KNEE RETINACULUM 2004 right knee FAMILY HISTORY: Family History Problem Relation Age of Onset Cancer Grandmother (Paternal) Liver Diabetes Grandmother (Paternal) Diabetes Grandfather (Maternal) Heart Disorder Grandfather (Maternal) Heart disorder Asthma Father Blood Disorder Father DVT Hypertension Father Diabetes Father type 2 Other (kidney stones) Father Other (Other, prostate problem, non-cancerous) Father Hypertension Sister Hypertension Mother Other (Other, Hysterectomy for AUB) Mother Heart Disorder Sister "hole in heart" Diabetes Sister Renal Hx Sister Congenital renal disease Asthma Sister Cancer Other 35 cousin, breast Cancer Uncle (Unspecified) 55 maternal, colon? SOCIAL HISTORY: Social History Tobacco Use Smoking status: Former Current packs/day: 0.00 Types: Cigarettes Quit date: 03/24/2014 Years since quittin.4 Smokeless tobacco: Never Tobacco comments: Not smoking Vaping Use Vaping Use: Former Substances: Nicotine, Flavoring Devices: Pre-filled or refillable cartridge Substance Use Topics Alcohol use: No Comment: none in over 1 year Drug use: Yes Types: Marijuana Comment: Medical Marijuana card CURRENT MEDICATIONS: Note that discontinued continue to display for 24 hours. Ordered medications to be given in the future also display. Current Outpatient Medications Medication Sig Dispense Refill albuterol (PROAIR HFA) 108 (90 BASE) MCG/ACT inhaler Inhale 2 Puffs by mouth every 4 hours as needed for Wheezing. 1 Inhaler 11 vitamin b-12 (CYANOCOBALAMIN) 1000 MCG/ML injection Inject 1,000 mcg as directed every 30 days. 1 mL 11 albuterol sulfate (PROVENTIL) (2.5 MG/3ML) 0.083% nebulizer solution Inhale 1 Vial via nebulizer every 4 hours as needed for Wheezing. 120 Vial 11 Nebulizer MISC Nebulizer mask and tubing 1 Each 0 clonazePAM (KLONOPIN) 0.5 MG Tablet 1 Molglmibsa-IRMR-Fzolcosp (FIORICET) 50-300-40 MG per capsule Take 1 Capsule by mouth every 6 hours as needed (migraine). traMADol (ULTRAM) 50 MG Tablet Take 1 Tablet by mouth every 6 hours as needed for Pain. tiZANidine (ZANAFLEX) 4 MG Tablet Take 1 Tablet by mouth 3 times a day as needed. Biotin 5 MG TBDP Take 1 Tab by mouth daily. Krill Oil (OMEGA-3) 500 MG CAPS Take 1 Cap by mouth daily. Loratadine 10 MG Oral Tablet (CLARITIN) TAKE 1 TABLET BY MOUTH EVERY DAY 30 Tab 5 busPIRone HCl 10 MG Oral Tablet (Buspar) Take 2 Tablets by mouth in the morning and 2 Tablets before bedtime. DULoxetine HCl 20 MG Oral Capsule Delayed Release Particles (Cymbalta) Take 1 Capsule by mouth in the morning and 1 Capsule before bedtime. Folic Acid 1 MG Oral Tablet See Instructions, Disp# 30 tab, Refills: 3, TAKE 1 TABLET BY MOUTH EVERY DAY, Pharmacy: [id number] Methotrexate 2.5 MG Oral Tablet See Instructions, Disp# 35 tab, Refills: 1, TAKE 7 TABLETS EVERY 7 DAYS FOR 30 DAYS, Pharmacy: [id number] Botox 100 UNIT Injection Solution Reconstituted (botulinum toxin type a) Start: 08/04/20 9:20:00 EDT, See Instructions, q three months Vitamin D (Cholecalciferol) 50 MCG (2000 UT) Oral Capsule Take 1 Cap by mouth daily. Vitamin C 500 MG Oral Capsule Take 1 Cap by mouth daily. Apixaban 5 MG Oral Tablet (Eliquis) Take 1 Tablet by mouth in the morning and 1 Tablet before bedtime. Lisinopril 10 MG Oral Tablet (Prinivil) Take 1 Tablet by mouth in the morning. Acetaminophen-Codeine #3 300-30 MG Oral Tablet (Tylenol #3) TAKE 1 TABLET BY MOUTH EVERY 8 HOURS ASNEEDED FOR PAIN NO DRIVING WHILE ON TYLENOL 3 Lidocaine 4 % External Cream APPLY TO BOTH KNEES 3 TIMES A DAY. 30 DAY SUPPLY Continuation of patient use of medical marijuana is approved Start: 01/22/21 8:22:00 EDT Ondansetron HCl 4 MG Oral Tablet (Zofran) TAKE 1 TABLET BY MOUTH EVERY 8 HOURS NEEDED FOR NAUSEAAND VOMITING Continuation of patient use of medical marijuana is approved Start: 01/22/21 8:22:00 EDT Ondansetron HCl 8 MG Oral Tablet (Zofran) Take 1 Tablet by mouth every 8 hours as needed for Nauseaor Vomiting. 12 Tablet 0 Promethazine HCl 25 MG Rectal Suppository (Phenergan) Administer 1 Suppository into the rectum every 6 hours as needed for Nausea. 12 Each 0 Ondansetron 4 MG Oral Tablet Disintegrating (Zofran) Place 1 Tablet on tongue every 8 hours as needed for Nausea. dissolve on tongue. 2 Tablet 0 Ondansetron 4 MG Oral Tablet Disintegrating (Zofran) Place 1 Tablet on tongue every 8 hours as needed for Nausea. dissolve on tongue. 15 Tablet 0 No current facility-administered medications for this visit. ALLERGIES: Imitrex [sumatriptan], [place] extract, Nsaids, Steroids [corticosteroids], and Nickel REVIEW OF SYSTEMS: Constitutional: (-)negative: no fever, chills, night sweats. Eyes: (-) negative: no blurred vision ENT: (-) negative: no headaches or throat problems Cardiovascular: (-) negative: no chest pain, dyspnea, syncope, or palpitations Pulmonary: (-) negative: no cough, wheezing, or shortness of breath Abdominal/GI: (-) negative: no pain, nausea or vomiting Musculoskeletal: (-) negative: no pain, no calf tenderness Skin: (+) ingrown nail Neurology: (-) negative: no focal neurologic defect Psychiatry: (-) negative: no depression or anxiety Objective PHYSICAL EXAMINATION: Most Recent Vital Signs: There were no vitals taken for this visit. Constitutional: Oriented to person, place, and time. Well-developed and well- nourished. . HENT: Head: Atraumatic. Cardiovascular: Pulses: Dorsalis pedis pulses are 2+ on the right side, and 2+ on the left side. Posterior tibial pulses are 2+ on the right side, and 2+ on the left side. Capillary Fill Time is less than 5 seconds to digits 1 through 5 on both lower extremities. Pulmonary/Chest: No respiratory distress. Musculoskeletal: MMT 5/5 with no pain on ROM in dorsiflexion, plantarflexion, inversion and eversion to both lower extremities. Diminished ankle joint, subtalar joint, midtarsal joint, and metatarsophalangeal joint range of motion. Neurological: Alert and oriented to person, place, and time. No atrophy. No sensory deficit is present. Normal muscle tone. Skin: Skin is warm, dry and intact. Normal proximal to distal cooling to the lower extremities. Texture is dry. Turgor is within normal limits. +incurvated ingrown nail to L toe. Hyperkeratotic tissue L dorsal 5th toe and R sub 5 Psychiatric: Normal mood and affect. Judgment and thought content normal. PROCEDURE: Discussed pathology treatment plan at length with patient. Non OR time Out: Time out was initiated under direction and supervision of provider Pippa. Correct patient identity - Yes Correct side and site - Yes Procedure matches verbalized consent -Yes Correct patient position - Yes Availability of correct implants and any special equipment or special requirements - Yes Time out occurred prior to procedure start - Yes Prophylactic antibiotic timing confirmed - N/A Witness present & agrees with the time out process. Removal of lateral nail border to the L hallux recommended. The procedure, risks, benefits, alternatives and expected outcomes were discussed with the patient and consent was obtained. Patient identified, procedure verified, site identified and verified. Following alcohol prep, injection consisting of 3ml of a 1:1 mixture of 2% Lidocaine and 0.5% Marcaine injected into L hallux in hallux block fashion in semi-sterile fashion with no incident. Once the patient was under an appropriate plane of local anesthesia, the area was prepped with Betadine. An elevator was used to free the lateral border of the L nail. An French Anvil Nail splitter was used to cut the lateral 2mm of the nail. This was excised using a hemostat. A small curette was utilized to assure no fragments remained. The area was cleansed with saline and dressed with antibiotic ointment, adaptic, dsd, coban. IMPRESSION and PLAN: (L84) Corns and callosities (primary encounter diagnosis) (L60.0) Ingrown left big toenail Ingrown nail to the L hallux PNA performed. Pt is to keep dressing intact for 24 hours then ok to remove and shower. Pt is to start warm epsom salt soaks BID for 20 min. Pt is to cover area with antibiotic ointment and a bandaid. After 1 week, ok to leave open to air at night. Pt educated on signs of infection including but not limited to nausea, vomiting, fever, chills, redness, warmth, swelling, or increased pain to foot. Pt to call clinic or go to ER immediately with any signs of infection. Patient to call the clinic with any problems or questions prior to next visit. Hyperkeratotic tissue x2 pared sharply without incident. Patient advised to use pumice stone to keep growth down Blanca Ruiz DPM, PGY-2 I have discussed the patient's management with the medical trainee and agree with the note. Please refer to the documented findings and plan of care. This patient's visit today consisted of an evaluation and procedure. I was present and confirmed the findings of the history and exam, and was present for the becker and critical portions of the procedure. Freya Blanton DPM documented in this encounter Nursing Notes * Liudmila Loyola CMA - 08/29/2023 1:23 PM EDT Chief Complaint Patient presents with Follow Up Patient is present today for L greater toe ingrown. Also having issues with pinky toe on L foot as well Patient was instructed to not get up on the exam table/exam chair until directed and assisted by their provider; patient is to remain seated in the chair/ wheelchair/ exam table/ exam chair for fall prevention and safety reasons. Patient is aware to have assistance to step down off exam table/exam chair with personnel. Patient voiced full comprehension of instructions. documented in this encounter Plan of Treatment Upcoming Encounters Date Type Department Care Team (Late st Contact Info) Description 10/07/2023 8:30 AM EDT Office Visit Gynecology/Obstetrics, [place] [address] [place] [id number] Anahi Ram PA-C [address] [place] [phone] Health Maintenance Due Date Last Done Comments Pneumococcal Vaccine: Pediatrics (0 to 5 Years) and At-Risk Patients (6 to 64 Years) (1 of 2 - PCV) 11/27/1991 Hepatitis B (1 of 3 - 19+ 3-dose series) 2004 HPV/Co-Test 11/27/2015 COVID-19 Vaccine (2022- season) 2022 12/19/2021, 06/12/2021, 12/19/2020, Additional history exists Cervical Cancer Screening 10/23/2023 Pap Smear 10/23/2023 10/22/2020, 04/0 08/2015, 09/12/2014 Diabetes Screening 05/14/2026 05/14/2023, 1 06/28/2022, 02/19/2023, Additional history exists DTaP,Tdap,and Td Vaccines (3 - Td or Tdap) 06/29/2027 06/29/2017, 04/08/2015 Influenza Vaccine (FLU shot) Completed , 01/14/2021, 01/15/2020, Additional history exists GARDASIL-HPV IMMUNIZATION SERIES Aged Out No longer eligible based on patient's age to complete this topic MENINGOCOCCAL (MENACTRA/MENVEO) Aged Out No longer eligible based on patient's age to complete this topic documented as of this encounter Medical Devices Not on filedocumented as of this encounter Visit Diagnoses Diagnosis Corns and callosities- Primary Ingrown left big toenail Ingrowing nail documented in this encounter Advance Directives Latest Code Status on File Code Status Date Activated Date Inactivated Comments Full Code 01/14/2021 9:14 AM 01/14/2021 2:35 PM This order reflects the patients wishes and were consensually agreed upon. Code Status History Code Status Date Activated Date Inactivated Comments Full Code 10/16/2019 12:52 PM 10/18/2019 6:07 PM This order reflects the patients wishes and were consensually agreed upon. Question Answer Comments Discussion of Advance Directives occurred with: Not Discussed Full Code 08/29/2017 5:26 AM 09/02/2017 2:10 AM This o rder reflects the patients wishes and were consensually agreed upon. Question Answer Comments Discussion of Advance Directives occurred with: Patient Does the patient have a Living Will? No Does the patient have Health Care Power of Email Marketing Coordinator? No Full Code 08/04/2017 3:34 AM 08/04/2017 10:23 AM This o rder reflects the patients wishes and were consensually agreed upon. Question Answer Comments Discussion of Advance Directives occurred with: Patient Does the patient have a Living Will? No Does the patient have Health Care Power of Email Marketing Coordinator? No Full Code 04/22/2015 11:27 PM 04/28/2015 9:35 PM Th is order reflects the patients wishes and were consensually agreed upon. Question Answer Comments Discussion of Advance Directives occurred with: Not Discussed Care Teams Hand Shoes Sewer Relationship Specialty Start Date End Date Alan Bryant DO [address] [place] [address] PCP - General Family Medicine 10/31/18 documented as of this encounter
[2023-09-07] MEDS: oxyCODONE/ACETAMINOPHEN 5mg/325mg TAB PO PRN (20:07)
[2023-09-07] MEDS: DOCUSATE SODIUM 100 MG CAP PO PRN (20:07)
[2023-09-07] MEDS: PANTOprazole 40 MG TAB PO SCH (20:07)
[2023-09-07] MEDS ORDERED: Nursing to Pharmacy Communication SCH (23:45)
--- NOTE | 2023-09-08 08:45 | Surgery Progress Note ---
Date of Service September 08, 2023 Assessment & Plan (1) S/P panniculectomy: Plan: Reed is doing well POD#1 s/p jayceemichael fuentes panniculectomy. She will be d/c home today with office follow-up tomorrow. We reviewed her post-op instructions, restrictions and diet. She will hold off on Eliquis until evaluated tomorrow. Admission and Anticipated Discharge Date Admission Date: September 07, 2023 Subjective Reed is resting comfortably in bed. Valdez was removed and she has been able to void. She has gotten out of bed to ambulate. She is tolerating a regular diet. Physical Exam Physical Exam: abd binder in place, drains with appropriate serosang output Results & Data Vital Signs (Past 12 Hours) Vital Signs Temp Pulse Pulse Resp BP Pulse Ox O2 Del Method 09/08/23 07:20 36.8 C 80 16 116/79 99 Room Air 09/08/23 04:03 36.8 C 78 16 106/57 L 97 Room Air 09/08/23 00:06 36.9 C 78 18 118/80 98 Room Air PG Care Time/CCT Total # of Minutes Spent Total Time Spent with Patient: Total time spent is greater than 50% in coordination of care (as documented) at patient's floor/unit and/or counseling patient: Coding Level of Care Code 15415 Post Operative Follow-Up Diagnoses S/P panniculectomy Z98.890
[2023-09-08] MEDS: MoRPHine SULFATE 2 MG/ML CARP IV PRN (08:56)
[2023-09-08] MEDS: ATOMOXETINE HCL 40 MG CAPSULE PO SCH (09:03)
[2023-09-08] MEDS: MULTIVITAMIN TAB PO SCH (09:04)
[2023-09-08] MEDS: LORATADINE 10 MG TAB PO SCH (09:04)
[2023-09-08] MEDS: oxyCODONE/ACETAMINOPHEN 5mg/325mg TAB PO PRN (11:24)
--- NOTE | 2023-09-09 12:58 | Discharge Summary ---
Date of Service September 09, 2023 Admission HPI Per Admitting Provider History of significant weight loss, excess abdominal skin. Admission Exam Per Admitting Provider large abdominal pannus Principal Diagnosis abdominal pannus Discharge Exam abd binder in place, drains with appropriate serosang output Discharge Data Allergies Allergy/AdvReac Type Severity Reaction Status Date / Time sumatriptan [From Imitrex] Allergy Intermediate Tachycardia Verified 09/07/23 06:09 nickel Allergy Mild SKIN Verified 09/07/23 06:09 IRRITATION strawberry AdvReac Mild Diarrhea Verified 09/07/23 06:09 NSAIDS (Non-Steroidal AdvReac Unknown TOLD NOT Verified 09/07/23 06:09 Anti-Inflamma TO TAKE D/T GASTRIC STEROID AdvReac Mild gan Uncoded 09/07/23 06:09 Procedures Performed Operation Date: 09/07/23 07:30 Actual Procedures p [id number] Panniculectomy(Bilateral) - Qing Olson MD Hospital Course (1) S/P panniculectomy: Patient presented to [facility] with history of abdominal pannus. She was taken to the OR and underwent jaycee de lis panniculectomy. There were no intraoperative complications. She was taken to recovery and transferred to med/surg for observation. On POD#1, she was feeling well. She was tolerating a regular diet and ambulating. She was able to void after catheter was removed. On exam, her vitals were stable. Her incisions were CDI. Her drains had appropriate output. She was discharged home with instructions to follow-up in the office in one day. Total Time Total Time Spent Total Time Spent (In Minutes): 15 Discharge Plan Discharge Items Patient Disposition: Home - Self-Care Reason For Visit: Abdominal Pannus Discharge Diagnosis: s/p jaycee de lis panniculectomy Activity: As commented below Non-emergency contact: Surgeon Call non-emergency contact if: you have any medication questions, you have a fever, your wound has increased redness and your wound has increased drainage Follow-up/Referrals: Brenda Duron PA-C [Physician Colorer] - 09/09/23 9:00 am (APPOINTMENT WITH JESSICA SMITH PA-C) Alan Bryant DO [Primary Care Provider] - Diet: Regular Addtl Attending Provider Instructions: ACTIVITY RECOMMENDATIONS: __Normal activities _x_No bending, lifting or straining. Do not stand or lay flat until it is easily comfortable. __No driving __Driving allowed when you are off pain medications _x_Walking permitted __You should have help at home for ___ days DRESSINGS: __No dressings required _x_Keep dressings dry/in place until first office visit __Remove dressings ___ and leave dressings off __Apply ice ___ days __Remove dressings and reapply garment __Apply antibiotic ointment (Bacitracin, Neosporin, etc) to wounds 3-4 times/day for 10 days BATHING: _x_Keep dressings dry _x_Sponge bathing permitted away from surgical dressings __Showering permitted _x_No swimming, hot tubs or soaking in a tub MEDICATIONS: Resume previous medications unless instructed otherwise by your surgeon. _x_Do not use aspirin, Motrin, Advil or Ibuprofen as these may promote bleeding. Please use Tylenol. _x_Prescription(s) provided: pain medication was provided at your last office visit OTHER INSTRUCTIONS: _x_Record drain output 2-3 times per day SPECIAL CARE INSTRUCTIONS: * It is normal to have a mild fever after surgery. If your temperature is higher than 101.5 degrees F, please call the office at [phone]. * Constipation is a typical side effect of pain medication. An [id number]-usv-[id number] stool softener will help relieve this. * Leaking around surgical drains may occur and should not cause concern. Sometimes these drains become clogged. If this happens, remove the bulb and milk the clot out of the tube, then replace the bulb. * Drainage from wounds after liposuction is normal and should be expected. Garments will become soiled. You should protect furniture and bedding. This drainage should mostly subside within 2-3 days. Leave garments in place unless instructed to remove them. * If you have unusual drainage from a wound or are concerned you have an infection or have any questions or concerns, please call the office at [phone]. FOLLOW UP VISIT: If not already scheduled, please call the office, , when you return home after surgery to schedule an appointment to be seen in __1_ days. Pending Studies at Discharge: Yes Stand-Alone Forms: [facility], Smoking Cessation Medications and DC Order Prescriptions: Continued albuterol sulfate 2.5 mg /3 mL (0.083 %) solution for nebulization 2.5 mg inhalation Q4H PRN (Reason: shortness of breath or wheezing) Qty: 90 1RF Patient Comments: finished with this 05/05/23 vit-iron fum-folic ac 65 mg iron- 1 mg tablet 1 tab PO DAILY Qty: 30 5RF Hold Instructions: SURGERY Patient Comments: afternoon loratadine [Claritin] 10 mg tablet 10 mg PO QAM Qty: 90 3RF ondansetron 4 mg tablet,disintegrating 4 mg PO Q8H PRN (Reason: Nausea) Qty: 20 0RF tizanidine 4 mg tablet 4 mg PO HS PRN (Reason: Spasms) Qty: 30 1RF Patient Comments: typically at bedtime albuterol sulfate 90 mcg/actuation HFA aerosol inhaler 2 puff INH Q6H PRN (Reason: shortness of breath or wheezing) Qty: 18 3RF pantoprazole 40 mg tablet,delayed release (DR/EC) 40 mg PO QPM hydroxyzine HCl 10 mg tablet 10 mg PO UD PRN (Reason: itching) diclofenac sodium [Voltaren Arthritis Pain] 1 % gel 2 g topical UD PRN (Reason: Pain) Hold Instructions: SURGERY Botox 200 unit recon soln 200 unit IM UD Rx Instructions: 155 UNITS IM IN THE FACE AND NECK MUSCLES EVERY 12 WEEKS PER MIGRAINE PROTOCOL Ubrelvy 100 mg tablet 100 mg PO UD PRN (Reason: migraine) atomoxetine 40 mg Capsule 40 mg PO QAM Lice Killing (permethrin) 1 % liquid 30 ml topical ONCE Qty: 59 0RF Rx Instructions: apply and leave on 10 min and wash off tramadol 50 mg tablet 50 mg PO BID PRN (Reason: pain) Qty: 30 0RF oxycodone-acetaminophen [Endocet] 5-325 mg tablet 1 tab PO Q4H PRN (Reason: pain) Qty: 18 0RF Rx Instructions: initial therapy Dr. Olson [id number] cholecalciferol (vitamin D3) [Vitamin D3] 25 mcg (1,000 unit) Tablet,Chewable 25 mcg PO DAILY Hold Instructions: SURGERY Patient Comments: afternoon potassium chloride 10 mEq capsule, extended release 10 meq PO QPM Hold Instructions: SURGERY Stool Softener 50 mg Capsule 50 mg PO BID PRN (Reason: Constipation) Discontinued cyanocobalamin (vitamin B-12) 1,000 mcg/mL solution 1,000 mcg IM UD Hold Instructions: SURGERY Patient Comments: supposed to be monthly, i typically forget Rx Instructions: 1,000 mcg IM once a month; Medical Marijuana Card 1 dose UD PRN (Reason: anxiety/pain) Hold Instructions: SURGERY Patient Comments: no use 6 weeks pre op panniculectomy on 09/07/23 and no use 6 weeks post op , per Dr. Olson Eliqudanna 2.5 mg tablet 2.5 mg PO BID Hold Instructions: SURGERY (DME) medical marijuana 0 .Route .MEDSUPPLY Hold Instructions: SURGERY biotin 1,000 mcg Tablet,Chewable 1,000 mcg PO DAILY Hold Instructions: SURGERY Patient Comments: afternoon Discharge Orders: Discharge Order (Routine); Ordered 09/08/23 Ordered By: Brenda Sosa/Other Patient Handouts: Abdominal Surgery Dc Admission Data Admit Date/Time: 09/07/23 12:13 Attending Provider: Qing Olson Admit Provider: Qing Olson Primary Care Provider: Alan Bryant Other Interventions: Discharge Summary Assessment (RN) Last Done: 09/08/23 11:03 Coding Level of Care Code 82598 OBS Care - Discharge Diagnoses S/P panniculectomy Z98.890
== END 2023-09-08 11:44 | disposition home or self-care (01) ==
LOC: 3N 05:46 → ASU 05:46